=== PATIENT | female | born 2000 | race Two or more races ===

== ENCOUNTER 2022-07-03 09:44 | Outpatient (CLI) | payer OTHER | END 2022-07-03 11:35 | disposition home or self-care (01) | LOC: PRENATAL 09:44 | PROVIDERS: ATTEND Obstetrics & Gynecology Maternal & Fetal Medicine | DX: O35.9XX0 Maternal care for (suspected) fetal abnormality and damage, unspecified, not applicable or unspecified (principal); O35.3XX0 Maternal care for (suspected) damage to fetus from viral disease in mother, not applicable or unspecified; Z3A.20 20 weeks gestation of pregnancy ==

== ENCOUNTER 2022-09-04 08:47 | Outpatient (CLI) | payer OTHER | END 2022-09-04 10:06 | disposition home or self-care (01) | LOC: PRENATAL 08:47 | PROVIDERS: ATTEND Obstetrics & Gynecology Maternal & Fetal Medicine | DX: O26.849 Uterine size-date discrepancy, unspecified trimester (principal); Z3A.28 28 weeks gestation of pregnancy ==

== ENCOUNTER 2022-10-02 09:59 | Outpatient (CLI) | payer OTHER | END 2022-10-02 11:14 | disposition home or self-care (01) | LOC: PRENATAL 09:59 | PROVIDERS: ATTEND Obstetrics & Gynecology Maternal & Fetal Medicine | DX: O26.849 Uterine size-date discrepancy, unspecified trimester (principal); O36.5990 Maternal care for other known or suspected poor fetal growth, unspecified trimester, not applicable or unspecified; Z3A.32 32 weeks gestation of pregnancy ==

== ENCOUNTER 2022-10-30 13:45 | Outpatient (CLI) | payer OTHER | END 2022-10-30 17:12 | disposition home or self-care (01) | LOC: PRENATAL 13:45 | PROVIDERS: ATTEND Obstetrics & Gynecology Maternal & Fetal Medicine | DX: O26.849 Uterine size-date discrepancy, unspecified trimester (principal); O36.8199 Decreased fetal movements, unspecified trimester, other fetus; O36.5990 Maternal care for other known or suspected poor fetal growth, unspecified trimester, not applicable or unspecified; Z3A.36 36 weeks gestation of pregnancy ==

== ENCOUNTER 2022-11-25 15:35 | Inpatient (IN) | payer OTHER ==
[~2022-11-25] VITALS: Ht 152.4 cm; Wt 75.3 kg
[2022-11-26] MEDS ORDERED: FOLIC ACID20 MG PO (08:05)
[2022-11-26] MEDS ORDERED: PRENATAL TABLE1 EAC1 PO (08:05)
== END 2022-11-28 13:26 | disposition home or self-care (01) | DRG 807 ==
LOC: LDR 15:35 → OB/GYN 11-26 20:41
PROVIDERS: ADMIT Obstetrics & Gynecology; ATTEND Obstetrics & Gynecology
PROC: 10E0XZZ Delivery of Products of Conception, External Approach (ICD-10-PCS; principal; 2022-11-26)
PROC: 0KQM0ZZ Repair Perineum Muscle, Open Approach (ICD-10-PCS; 2022-11-26)
PROC: 4A1HXCZ Monitoring of Products of Conception, Cardiac Rate, External Approach (ICD-10-PCS; 2022-11-26)
DX: O70.1 Second degree perineal laceration during delivery (principal); Z37.0 Single live birth; O36.5930 Maternal care for other known or suspected poor fetal growth, third trimester, not applicable or unspecified; Z3A.40 40 weeks gestation of pregnancy; Z20.822 Contact with and (suspected) exposure to COVID-19

== ENCOUNTER 2024-07-21 20:32 | Emergency (ER) | payer OTHER ==
[~2024-07-21] VITALS: Ht 167.6 cm; Wt 59.0 kg
[~2024-07-21 20:32] MED LIST: FOLIC ACID20 MG PO; PRENATAL TABLE1 EAC1 PO
[2024-07-21] MEDS ORDERED: DEXTROSE 5 %-0.45 % SOD CHLORD 500 ML IV STA (21:55)
[2024-07-21 22:18] LABS: HEMOGLOBIN 13.4 g/dL (12.0-15.00); MEAN CELL VOLUME 83.9 fL (80.00-100.00); MEAN CORPUSCULAR HEMOGLOBIN 29.6 pg (27.00-32.0); MEAN CORPUSCULAR HGB CONC 35.3 g/dl (32.0-36.0); PLATELET COUNT 255 K/uL (150-450); RED BLOOD COUNT 4.53 M/uL (4.00-6.00); RED CELL DISTRIBUTION WIDTH 13.3 % (11.5-14.5)
[2024-07-21 22:37] LABS: ALBUMIN 4.4 gm/dL (3.4-5.0); BILIRUBIN TOTAL 0.54 mg/dL (0.3-1.2); CALCIUM 9.3 mg/dL (8.5-10.1); CREATININE SERUM 0.84 mg/dL (0.55-1.02); GFR 82.61; GLOBULINA 3.9 G/DL (2.4-3.5); POTASSIUM 3.47 mEq/L (3.5-5.1); TOTAL PROTEIN 8.3 gm/dL (6.4-8.2)
[2024-07-21 22:42] LABS: URINE APPEARANCE Clear; URINE BILIRRUBIN Negative (NEGATIVE); URINE BLOOD Large; URINE COLOR Orange; URINE GLUCOSE Negative (NEGATIVE); URINE KETONE Negative (NEGATIVE); URINE LEUKOCYTE Trace; URINE NITRATE Negative; URINE PROTEIN Negative (NEGATIVE); URINE UROBILINOGEN 0.2 E.U./dl
[2024-07-21 22:45] LABS: URINE EPITHELIAL CELLS 3.3 uL (0.0-38.8); URINE RBC 3507.1 uL (0.0-20.8); URINE WBC 8.7 uL (0.0-23.2)
[2024-07-21 22:56] LABS: URINE CAST 0.44 uL (0.0-1.40)
== END 2024-07-21 23:35 | disposition home or self-care (01) ==
LOC: ER 20:33
PROVIDERS: General Practice
DX: R53.81 Other malaise (principal); R53.1 Weakness; Z20.822 Contact with and (suspected) exposure to COVID-19

== ENCOUNTER 2025-02-19 23:26 | Emergency (ER) | payer OTHER ==
[~2025-02-19] VITALS: Ht 157.5 cm; Wt 59.0 kg
[2025-02-20] MEDS ORDERED: ONDANSETRON HCL 2 MG/ML VIAL IV STA (00:51)
[2025-02-20] MEDS ORDERED: FAMOTIDINE/PF 20 MG/2 ML VIAL IV PUSH STA (00:51)
[2025-02-20] MEDS ORDERED: 0.9 % SODIUM CHLORIDE 1,000 ML IV STA (00:53)
[2025-02-20] MEDS ORDERED: FAMOTIDINE/PF 20 MG/2 ML VIAL ONE (00:57)
[2025-02-20] MEDS ORDERED: ONDANSETRON HCL 2 MG/ML VIAL ONE (00:57)
[2025-02-20 01:43] LABS: BASO % 0.1 % (0.1-1.2); EOS # 0.03 (0.04-0.54); EOS % 0.2 % (0.7-7.0); LYMPH # 0.30 (1.18-3.74); LYMPH % 2.2 % (19.3-53.1); MEAN PLATELET VOLUME 9.60 fl (9.4-12.4); MONO # 0.59 (0.24-0.82); MONO % 4.4 % (4.7-12.5); NEUT # 12.38 (1.56-6.13); NEUT % 92.8 % (34.0-71.1); RED CELL DISTRIBUTION WIDTH 12.7 % (11.6-14.4)
[2025-02-20 01:53] LABS: ALT/SGPT 22.0 U/L (12-78); AST/SGOT 16.0 U/L (15-37); BILIRUBIN TOTAL 0.77 mg/dL (0.3-1.2); BUN CREA RATIO 12.0 (7.0-25.0); CREATININE SERUM 1.05 mg/dL (0.55-1.02); GFR 63.35; GLOBULINA 3.4 G/DL (2.4-3.5); GLUCOSE FASTING 119.0 mg/dL (65-100); OSMOLALITY SERUM 284.0 MOSM/KG (275-295)
== END 2025-02-20 02:59 | disposition home or self-care (01) ==
LOC: ER 23:26
PROVIDERS: General Practice
DX: K52.9 Noninfective gastroenteritis and colitis, unspecified (principal)